=== PATIENT | female | born 1935 | race Caucasian/White ===

== ENCOUNTER 2019-04-14 11:18 | Outpatient (CLI) | payer OTHER | END 2019-04-14 13:20 | disposition home or self-care (01) | LOC: NUCLEAR 11:18 | DX: I50.42 Chronic combined systolic (congestive) and diastolic (congestive) heart failure (principal); I35.0 Nonrheumatic aortic (valve) stenosis ==

== ENCOUNTER → 2019-04-14 | Outpatient (CLI) | payer OTHER | END | disposition home or self-care (01) | LOC: RAD 09:23 | DX: J18.8 Other pneumonia, unspecified organism (principal) ==